=== PATIENT | female | born 1980 | race Caucasian/White ===

== ENCOUNTER → 2017-02-23 | Outpatient (CLI) | payer OTHER | LOC: FIMAGING 07:25 | PROVIDERS: ATTEND Advanced Practice Midwife | DX: O09.512 Supervision of elderly primigravida, second trimester (principal); Z3A.19 19 weeks gestation of pregnancy ==

== ENCOUNTER → 2017-07-26 | Outpatient (CLI) | payer OTHER | LOC: FIMAGING 14:13 | PROVIDERS: ATTEND Advanced Practice Midwife | DX: O09.513 Supervision of elderly primigravida, third trimester (principal); Z3A.41 41 weeks gestation of pregnancy ==

== ENCOUNTER 2017-07-27 20:02 | Inpatient (IN) | payer OTHER ==
[2017-07-27] MEDS ORDERED: OLIVE OIL 118 ML BTL MISC PRN (20:20)
[2017-07-27] MEDS ORDERED: EPSOM SALT 454 GM TP PRN (20:20)
[2017-07-27] MEDS ORDERED: LR 1,000 ML IV PRN (20:20)
[2017-07-27] MEDS ORDERED: TERBUTALINE SULFATE 1 MG/ML VIAL IV PRN (20:20)
[2017-07-27] MEDS ORDERED: fentaNYL 2MCG/ML/BUP 0.1% RTU 100 ML BAG EP ONE (20:20)
[2017-07-27] MEDS ORDERED: PHENYLEPHRINE HCL 100 MCG/ML SYR ONE (20:21)
[2017-07-27] MEDS ORDERED: BUPIVACAINE 0.25% 30 ML SDV ONE (20:21)
[2017-07-27] MEDS ORDERED: fentaNYL 100 MCG/2 ML INJ ONE (20:21)
[2017-07-27 20:32] LABS: % IMMATURE GRANULYOCYTES 0.7 % (0.0-1.1); ABSOLUTE IMMATURE GRANULOCYTES 0.15 10^3/uL (0.00-0.10); ADD DIFF? NO; ADD MORPH? NO; ADD SCAN? NO; ATYPICAL LYMPHOCYTE FLAG 0 (0-99); FRAGMENT RBC FLAG 0 (0-99); HEMATOCRIT 39.8 % (38.0-47.0); HEMOGLOBIN 14.7 g/dL (12.6-16.3); LEFT SHIFT FLG 10 (0-99); LIPEMIA HEMOLYSIS FLAG 90 (0-99); MEAN CELL HEMOGLOBIN 32.5 pg (27.9-34.1); MEAN CELL HEMOGLOBIN CONCENTR. 36.9 g/dL (32.4-36.7); MEAN CELL VOLUME 87.9 fL (81.5-99.8); PLATELET CLUMPS FLAG 10 (0-99); PLATELET COUNT 116 10^3/uL (150-400); RED BLOOD CELL COUNT 4.53 10^6/uL (4.18-5.33); RED CELL DISTRIBUTION WIDTH 13.7 % (11.5-15.2)
[2017-07-27] MEDS ORDERED: LIDO/EPI 2% **for epidural** 20 ML SDV ONE (21:14)
--- NOTE | 2017-07-27 21:24 | PREANESOB ---
Obstetric Pre-Anesthesia Info - General Info Proposed Procedure: Labor and delivery. : 1 Para: 0 - Info Status: Postmature Monitors: External FHR Baseline (bpm): 130 FHR Pattern: Reassuring - Labor Status Cervical Dilation per last OB SVE: 6 PIH: No Indications for Labor Analgesia: Pain Control Labor Epidural: Proposed Anesthesia ROS: Negative. Allergies/Adverse Reactions: Allergy/AdvReac Type Severity Reaction Status Date / Time No Known Allergies Allergy Unverified 07/27/17 20:20 Visit Medications: Generic Name Dose Route Start Last Admin Trade Name Keshia PRN Reason Stop Dose Admin Lactated Ringer's 1,000 mls @ 0 mls/hr 07/27/17 20:20 Lr IV 01/23/18 20:19 PRN PRN SEE PROTOCOL CONDITIONS Protocol Per Protocol Oxytocin 20 unit/ Lactated 1,002 mls @ 150 mls/hr 07/27/17 20:20 Ringer's IV PRN PRN Post- bleeding Ibuprofen 600 mg 07/27/17 20:20 Motrin PO 01/23/18 20:19 Q6HRS PRN post , inflammation Magnesium Sulfate 454 gm 07/27/17 20:20 Epsom Salt TP 01/23/18 20:19 Q1H PRN perineal discomfort [place] Oil 118 ml 07/27/17 20:20 Sweet Oil MISC 01/23/18 20:19 ONCE PRN perineal massage Terbutaline Sulfate 0.25 mg 07/27/17 20:20 Brethine IV 01/23/18 20:19 ONCE PRN Tachysystole Discontinued Medications Generic Name Dose Route Start Last Admin Trade Name Keshia PRN Reason Stop Dose Admin Bupivacaine HCl Confirm 07/27/17 20:21 Sensorcaine 0.25% Sdv Administered 07/27/17 20:22 Dose 30 ml .ROUTE .STK-MED ONE Fentanyl Confirm 07/27/17 20:21 Sublimaze Administered 07/27/17 20:22 Dose 100 mcg .ROUTE .STK-MED ONE Fentanyl/Bupivacaine HCl Confirm 07/27/17 20:20 Fentanyl/Bupivacaine/Ns 2 Mcg/Ml 0.1% (Premix Administered 07/27/17 20:21 Dose 100 ml EP .STK-MED ONE Lidocaine/Epinephrine Confirm 07/27/17 21:14 Xylocaine 2%-Epi 1:200,000 Administered 07/27/17 21:15 Dose 20 ml .ROUTE .STK-MED ONE Phenylephrine HCl Confirm 07/27/17 20:21 Neosynephrine Administered 07/27/17 20:22 Dose 1,000 mcg .ROUTE .STK-MED ONE - Anesthesia History Response to Local Anesthetics: Normal Anesthesia & Operative History: No Prior Problems Family Anesthesia History: Negative - Social History Substance Use/Abuse: Denies - Vital Signs Blood Pressure: 133/63 Heart Rate: 67 - Focused Exam Neck exam: FROM Mallampati Score: Class 1 Mouth exam: normal dental/mouth exam Pulmonary: no respiratory distress Cardiovascular: regular rate and rhythym Labs: 07/27/17 20:25 Patient ABO/Rh A POSITIVE 07/27/17 20:25 - Plan Anesthetic Plan: CSE Consent Signed and on Chart: Yes Patient/Guardian Understands and Agrees to Plan: Yes Urgent/Emergent Case: Berta hernandez completed preop but documented later for safe timely pt care
--- NOTE | 2017-07-27 21:37 | OBPROG ---
Labor Progress Note Assessment/Plan: Assessment: 36 year-old white female G1 @ 41.1 in labor who has transferred care (during labor) from Center. Now s/p epidural. Prolonged heart rate deceleration following epidural administration. heart rate is now category I following resuscitative measures. Plan: Passive (laboring down) 1st stage of labor. Rest with epidural and recheck cervix in 1 hour or sooner if pain/pressure worsens. 07/27/17 21:32 Subjective/Intrapartum Course: 07/27/17 21:31 I was called to assess patient following administration of epidural for heart rate decelerations. She had already received phenylephrine by the time I arrived in room. Objective: 07/27/17 20:25 Patient ABO/Rh A POSITIVE 07/27/17 20:25 Temp Pulse Resp BP Pulse Ox 67 133/63 H 07/27/17 21:24 07/27/17 21:24 - Physical Exam General Appearance: alert, mild distress, anxiety Neck: supple Respiratory: lungs clear, normal breath sounds Cardiac/Chest: regular rate, rhythm Abdomen: other (gravid, S=D, palpable contractions) Extremities: normal range of motion, non-tender Skin: normal color, warm/dry Neuro/Psych: no motor/sensory deficits, alert, normal mood/affect, oriented x 3 , other (s/p epidural, bilateral leg numbness and weakness) ICD10 Worksheet Patient Problems: Problems Problem Status Onset Active labor at term Acute - ICD10 Problem Qualifiers (1) Active labor at term
[2017-07-27] MEDS ORDERED: PHENYLEPHRINE HCL 100 MCG/ML SYR IVP PRN (21:45)
[2017-07-27] MEDS ORDERED: ONDANSETRON 4 MG/2 ML VIAL IVP PRN (21:45)
--- NOTE | 2017-07-27 21:45 | POSTANESTH ---
Post Anesthetic Evaluation Cardiovascular Status: Normal, Stable, Other, See Comment Respiratory Status: Normal, Stable Level of Consciousness/Mental Status: Can Participate in Eval Pain Control: Adequate, Prn Tx Ordered Nausea/Vomiting Control: Adequate, Prn Tx Ordered Complications Possibly Related to Anesthesia: None Noted (Brief decrease in BP and decreased FHTs x about 5 minutes - resolved with phenylephrine x 2 and position changes also cervix changed from 6 to 9cm after CSE.)
--- NOTE | 2017-07-27 21:55 | PDGENHP ---
History and Physical - Chief Complaint labor, center transfer - History of Present Illness 36-year-old G1 @ 40.1 weeks gestation (EDC 07/19/17 by LMP c/w scan) presents after trial of labor at [facility]. She was reportedly 6 cm dilated when she decided to present to [facility]. Care has been with [facility] midwives. Past medical history is significant for anxiety, not currently on meds. No complications in current . A+ / Antibody screen negative / RPR NR / HIV NR / Rubella Immune / HBsAg Neg / Hep C Neg / Chlamydia/ Gonorrhea Neg/Neg / cfDNA WNL / 1hr GTT 81 / GBS Negative. History Information - Allergies/Home Medication List Allergies/Adverse Reactions: No Known Allergies Allergy (Unverified 07/27/17 20:20) I have personally reviewed and updated: family history, medical history, social history, surgical history - Past Medical History no pertinent PMH - Surgical History Reports: no pertinent surgical hx - Family History Positive for: non-pertinent - Social History Smoking Status: Never smoked Alcohol Use: None Drug Use: None Review of Systems Review of Systems: ROS: 10pt was reviewed & negative except for what was stated in HPI & below Physical Exam Physical Exam: Temp Pulse Resp BP Pulse Ox 67 133/63 H 07/27/17 21:40 07/27/17 21:40 Constitutional: not in pain Eyes: PERRL Ears, Nose, Mouth, Throat: moist mucous membranes Cardiovascular: regular rate and rhythym, no murmur, rub, or gallop Respiratory: no respiratory distress, clear to auscultation Gastrointestinal: soft, non-tender abdomen Genitourinary: other (CE: 9.5/100/-3) Skin: warm, normal color Musculoskeletal: other (legs relatively immoble s/p epidural) Neurologic: AAOx3 Psychiatric: interacting appropriately, anxious Lab Data & Imaging Review 07/27/17 20:25 WBC 21.15 10^3/uL (3.80-9.50) H 07/27/17 20:25 RBC 4.53 10^6/uL (4.18-5.33) 07/27/17 20:25 Hgb 14.7 g/dL (12.6-16.3) 07/27/17 20:25 Hct 39.8 % (38.0-47.0) 07/27/17 20:25 MCV 87.9 fL (81.5-99.8) 07/27/17 20:25 MCH 32.5 pg (27.9-34.1) 07/27/17 20:25 MCHC 36.9 g/dL (32.4-36.7) H 07/27/17 20:25 RDW 13.7 % (11.5-15.2) 07/27/17 20:25 Plt Count 116 10^3/uL (150-400) L 07/27/17 20:25 MPV 14.0 fL (8.7-11.7) H 07/27/17 20:25 Neut % (Auto) 89.6 % (39.3-74.2) H 07/27/17 20:25 Lymph % (Auto) 4.3 % (15.0-45.0) L 07/27/17 20:25 [place] % (Auto) 5.2 % (4.5-13.0) 07/27/17 20:25 Eos % (Auto) 0.0 % (0.6-7.6) L 07/27/17 20:25 Baso % (Auto) 0.2 % (0.3-1.7) L 07/27/17 20:25 Nucleat RBC Rel Count 0.0 % (0.0-0.2) 07/27/17 20:25 Absolute Neuts (auto) 18.96 10^3/uL (1.70-6.50) H 07/27/17 20:25 Absolute Lymphs (auto) 0.91 10^3/uL (1.00-3.00) L 07/27/17 20:25 Absolute Monos (auto) 1.09 10^3/uL (0.30-0.80) H 07/27/17 20:25 Absolute Eos (auto) 0.00 10^3/uL (0.03-0.40) L 07/27/17 20:25 Absolute Basos (auto) 0.04 10^3/uL (0.02-0.10) 07/27/17 20: Absolute Nucleated RBC 0.00 10^3/uL (0-0.01) 07/27/17 20: Immature Gran % 0.7 % (0.0-1.1) 07/27/17 20:25 Immature Gran # 0.15 10^3/uL (0.00-0.10) H 07/27/17 20:25 Patient ABO/Rh A POSITIVE 07/27/17 20:25 Antibody Screen NEGATIVE 07/27/17 20:25 Assessment & Plan Assessment: 36 yo G1 @ 40.1 weeks in labor Plan: s/p epidural await second stage monitor FHRT closely
[2017-07-27] MEDS ORDERED: LR 500 ML IV SCH (22:00)
[2017-07-27] MEDS ORDERED: fentaNYL 2MCG/ML/BUP 0.1% RTU 100 ML EP SCH (22:00)
[2017-07-27] MEDS ORDERED: OLIVE OIL 118 ML BTL ONE (22:46)
[2017-07-27] MEDS ORDERED: LIDOCAINE 1% 300 MG/30 ML SDV ONE (22:46)
[2017-07-27] MEDS ORDERED: TERBUTALINE SULFATE 1 MG/ML VIAL ONE (22:46)
[2017-07-27] MEDS ORDERED: OXYTOCIN 10 UNIT/ML VIAL ONE (22:46)
[2017-07-27] MEDS ORDERED: AMMONIA AROMATIC 1 EACH AMP IH ONE (22:46)
[2017-07-27] MEDS ORDERED: MISOPROSTOL 200 MCG TAB ONE (22:46)
[2017-07-27] MEDS ORDERED: CEPACOL LOZENGE PO PRN (22:52)
--- NOTE | 2017-07-28 05:47 | OBPROG ---
Labor Progress Note Assessment/Plan: Assessment: 36 year-old white female G1 @ 41.1 in labor who has transferred care (during labor) from [facility]. Now s/p epidural. Prolonged heart rate deceleration following epidural administration. heart rate is now category I following resuscitative measures. Plan: Passive (laboring down) 1st stage of labor. Rest with epidural and recheck cervix in 1 hour or sooner if pain/pressure worsens. 07/27/17 21:32 07/28/17 05:47 2nd stage begun Subjective/Intrapartum Course: 07/27/17 21:31 I was called to assess patient following administration of epidural for heart rate decelerations. She had already received phenylephrine by the time I arrived in room. 07/28/17 05:47 Feeling more pain with contractions Objective: 07/27/17 20:25 Patient ABO/Rh A POSITIVE 07/27/17 20:25 Temp Pulse Resp BP Pulse Ox 67 133/63 H 07/27/17 21:40 07/27/17 21:40 - SVE Dilation (cm): 10 Effacement (%): 100 Station: -1 Membranes: AROM Amniotic Fluid Color: Clear - FHR Assessment [place] FHR (bpm): 120 Oxytocin Orders Assessment - Pre-Induction/Augmentation Assessment Gestational Age: 41 week(s) and 1 day(s) ICD10 Worksheet Patient Problems: Problems Problem Status Onset Active labor at term Acute - ICD10 Problem Qualifiers (1) Active labor at term
[2017-07-28] MEDS ORDERED: ACETAMINOPHEN 325 MG TAB PO PRN (06:49)
--- NOTE | 2017-07-28 07:05 | OBPROG ---
Labor Progress Note Assessment/Plan: Assessment: 36 year-old white female G1 @ 41.1 in labor who has transferred care (during labor) from Center. Now s/p epidural. Prolonged heart rate deceleration following epidural administration. heart rate is now category I following resuscitative measures. Plan: Passive (laboring down) 1st stage of labor. Rest with epidural and recheck cervix in 1 hour or sooner if pain/pressure worsens. 07/27/17 21:32 07/28/17 05:47 2nd stage begun 07/28/17 07:02 Continue pushing 38F temp: Tylenol ordered, monitor closely for mat/fet tachycardia; ruptured at 5PM Subjective/Intrapartum Course: 07/27/17 21:31 I was called to assess patient following administration of epidural for heart rate decelerations. She had already received phenylephrine by the time I arrived in room. 07/28/17 05:47 Feeling more pain with contractions 07/28/17 07:04 Denies fever. Pushing. Objective: 07/27/17 20:25 Patient ABO/Rh A POSITIVE 07/27/17 20:25 Temp Pulse Resp BP Pulse Ox 67 133/63 H 07/27/17 21:40 07/27/17 21:40 - SVE Dilation (cm): 10 Effacement (%): 100 Station: +1 Membranes: AROM Amniotic Fluid Color: Clear - FHR Assessment [place] FHR (bpm): 120 (early decels) FHR Pattern Variability: Moderate Oxytocin Orders Assessment - Pre-Induction/Augmentation Assessment Gestational Age: 41 week(s) and 1 day(s) ICD10 Worksheet Patient Problems: Problems Problem Status Onset Active labor at term Acute - ICD10 Problem Qualifiers (1) Active labor at term
[2017-07-28] MEDS: OXYTOCIN 20 UNIT in LR 1,000 ML IV PRN ×2 (08:21→12:44)
[2017-07-28] MEDS ORDERED: DOCUSATE SODIUM 100 MG CAP PO PRN (08:36)
[2017-07-28] MEDS ORDERED: HYDROCODONE/APAP 5/325 TAB PO PRN (08:36)
[2017-07-28] MEDS ORDERED: SIMETHICONE 80 MG TAB CHEW PO PRN (08:36)
[2017-07-28] MEDS ORDERED: HYDROCORTISONE 0.5% CREAM TP PRN (08:36)
[2017-07-28] MEDS ORDERED: IBUPROFEN 600 MG TAB PO PRN (08:36)
--- NOTE | 2017-07-28 08:43 | OBDEL ---
Info Type: Vaginal Presentation at Delivery: [facility] L&D Analgesia/Anesthesia Type: Epidural GBS+: No Intrapartum Medications: Generic Name Dose Route Start Last Admin Trade Name Freq PRN Reason Stop Dose Admin Acetaminophen 325 - 650 mg 07/28/17 06:49 07/28/17 07:11 Tylenol PO 01/24/18 06:48 650 mg Q3HRS PRN Administration Pain, Mild Ondansetron HCl 4 mg 07/27/17 21:45 07/28/17 03:11 Zofran IVP 07/28/17 21:44 4 mg Q4HRS PRN Administration Nausea/Vomiting, Can't Take PO Discontinued Medications Generic Name Dose Route Start Last Admin Trade Name Freq PRN Reason Stop Dose Admin Oxytocin 20 unit/ Lactated 1,002 mls @ 150 mls/hr 07/27/17 20:20 07/28/17 08: 21 Ringer's IV 10 mls PRN PRN Administration Post- bleeding - Care Provider Scroll Shear Operator/SEAM PRESS OPERATOR: Kaitlin Barbour - Hospital Course Intrapartum: 07/27/17 21:31 I was called to assess patient following administration of epidural for heart rate decelerations. She had already received phenylephrine by the time I arrived in room. 07/28/17 05:47 Feeling more pain with contractions 07/28/17 07:04 Denies fever. Pushing. Indications for Delivery: Spontaneous Labor (transfer from center) Vaginal Delivery - Delivery Provider Delivery Physician/CNM: Michelle Lynn - Labor and Delivery Onset of Contractions Date: 07/27/17 Onset of Contractions Time: 14:00 Onset of Contractions Type: Spontaneous Rupture of Membranes Date: 07/27/17 Rupture of Membranes Time: 17:00 Rupture of Membranes Type: Artificial Amniotic Fluid Color: Clear Dilation Complete Date: 07/28/17 Dilation Complete Time: 03:00 Placenta Delivery Date: 07/28/17 Placenta Delivery Time: 08:20 Total Hours of Labor: 18 Non-surgical Procedures: Amniotomy Laceration: Other (Specify) (Left vaginal sidewall) Repair: 3-0, Vicryl Vaginal Sponge Count Correct: Yes Vaginal Needle Count Correct: Yes Vaginal Sweep Performed: Yes EBL: 300 cc Delivery Events: Nuchal Cord (loose x 1 - slipped on perineum), Shoulder Dystocia (Mild, <1 min; shoulder delivered after McRobert's maneuver and suprapubic pressure; terminal meconium-thick noted after delivery of anterior shoulder) [place] Data [place] Delivery Date: 07/28/17 Delivery Time: 08:13 ELVER: 07/19/17 Gestational Age: 41 week(s) and 2 day(s) Sex of : Male Weight (gm): 3572.04 g Score (1 Min): 7 Score (5 Min): 9 Shoulder Dystocia Time Head Delivered: 08:12 Time Body Delivered: 08:13 1st Maneuver Attempted Maneuvers: Norma 2nd Maneuver Attempted Maneuvers: Suprapubic Pressure ICD10 Worksheet Patient Problems: Problems Problem Status Onset Active labor at term Acute (spontaneous vaginal delivery) Acute - ICD10 Problem Qualifiers (1) (spontaneous vaginal delivery)
[2017-07-28 09:08] LABS: PH VENOUS CORD BLOOD 7.27 (7.20-7.42)
[2017-07-28] MEDS: IBUPROFEN 600 MG TAB PO PRN ×3 (09:29→22:07)
[2017-07-28 13:11] VITALS: RESP 16; O2SAT 97
[2017-07-29] MEDS: IBUPROFEN 600 MG TAB PO PRN ×3 (07:31→20:07)
--- NOTE | 2017-07-29 11:32 | OBPP ---
Progress Note Assessment/Plan: Assessment: [id number] S/p PPD#1 Plan: routine pp care ambulate support PRN plan d/c home tomorrow 07/29/17 10:34 07/29/17 14:43 Subjective/ Course: 07/29/17 14:44 Pt is doing well, she denies any pain or heavy bleeding. She reports mild cramping. She is . She is voiding without difficulty. Objective: 07/27/17 20:25 Patient ABO/Rh A POSITIVE 07/27/17 20:25 Temp Pulse Resp BP Pulse Ox 36.5 C 63 16 106/64 97 07/28/17 20:00 07/28/17 20:00 07/28/17 20:00 07/28/17 20:00 07/28/17 11:45 Uterine Position/Fundal Height: Umbilicus -1, Midline Uterine Tone: Firm Physical Exam - Physical Exam EENT: PERRL/EOMI, normal ENT inspection Neck: supple Respiratory: lungs clear, normal breath sounds Cardiac/Chest: regular rate, rhythm Abdomen: non-tender, soft, other (uterus firm @ U-1) Extremities: non-tender Back: Normal inspection Skin: normal color, warm/dry Neuro/Psych: no motor/sensory deficits, alert, normal mood/affect, oriented x 3
[2017-07-30] MEDS: IBUPROFEN 600 MG TAB PO PRN ×2 (02:20→08:31)
--- NOTE | 2017-07-30 09:55 | OBPP ---
Progress Note Assessment/Plan: Assessment: PPD 2 s/p transfer from center Plan: routine care, d/c home 07/30/17 09:52 Subjective/ Course: 07/29/17 14:44 Pt is doing well, she denies any pain or heavy bleeding. She reports mild cramping. She is . She is voiding without difficulty. 07/30/17 09:53 Pt doing well. Baby is latching well. bld is light. urinating fine - feeling sensation of voiding better. perineum not too sore - used ice. using ibu. Objective: 07/27/17 20:25 Patient ABO/Rh A POSITIVE 07/27/17 20:25 Temp Pulse Resp BP Pulse Ox 36.2 C 59 L 16 102/65 97 07/29/17 20:00 07/29/17 20:00 07/29/17 20:00 07/29/17 20:00 07/28/17 11:45 Uterine Position/Fundal Height: Umbilicus -1 Uterine Tone: Firm Physical Exam - Physical Exam Abdomen: non-tender, soft Extremities: non-tender, pedal edema (none) Skin: normal color, warm/dry Neuro/Psych: alert, normal mood/affect
--- NOTE | 2017-07-30 10:01 | OBGCSDC ---
General Delivery Information - General Info : 1 Para: 1 Abortions: 0 Type: Vaginal L&D Analgesia/Anesthesia Type: Epidural Admission Date: 07/27/17 Labs: Patient ABO/Rh A POSITIVE 07/27/17 20:25 Hct 39.8 % (38.0-47.0) 07/27/17 20:25 - Hospital Course Intrapartum: 07/27/17 21:31 I was called to assess patient following administration of epidural for heart rate decelerations. She had already received phenylephrine by the time I arrived in room. 07/28/17 05:47 Feeling more pain with contractions 07/28/17 07:04 Denies fever. Pushing. : 07/29/17 14:44 Pt is doing well, she denies any pain or heavy bleeding. She reports mild cramping. She is . She is voiding without difficulty. 07/30/17 09:53 Pt doing well. Baby is latching well. bld is light. urinating fine - feeling sensation of voiding better. perineum not too sore - used ice. using ibu. Vaginal - Delivery Provider Delivery Physician/CNM: Michelle Lynn - Diagnosis Labor: Spontaneous Rupture of Membranes Type: Artificial Amniotic Fluid Color: Clear Laceration: Other (Specify) (Left vaginal sidewall) Repair: 3-0, Vicryl Delivery Events: Nuchal Cord (loose x 1 - slipped on perineum), Shoulder Dystocia (Mild, <1 min; shoulder delivered after McRobert's maneuver and suprapubic pressure; terminal meconium-thick noted after delivery of anterior shoulder) - Procedures Non-surgical Procedures: Amniotomy - Delivery Non-surgical Procedures: Amniotomy EBL: 300 cc [place] Data [place] Delivery Date: 07/28/17 Delivery Time: 08:13 ELVER: 07/19/17 Gestational Age: 41 week(s) and 4 day(s) Sex of Infant: Male [place] Weight (gm): 3570 kg Score (1 Min): 5 Score (5 Min): 8 Discharge Information - Discharge Information Condition: Good Instruction/Follow Up: See Instruction Sheet, Four Weeks, Six Weeks (option for f/u with [facility] or center)
[2017-07-30 10:29] VITALS: BP 104/64; PULSE 66; TEMP 97.4
== END 2017-07-30 11:00 | disposition home or self-care (01) | DRG 775 ==
LOC: FLD 20:02 → FOB 07-28 11:01
PROVIDERS: ADMIT Obstetrics & Gynecology Gynecology; ATTEND Obstetrics & Gynecology
PROC: 10907ZC Drainage of Amniotic Fluid, Therapeutic from Products of Conception, Via Natural or Artificial Opening (ICD-10-PCS; 2017-07-27)
PROC: 0UQG7ZZ Repair Vagina, Via Natural or Artificial Opening (ICD-10-PCS; principal; 2017-07-28)
PROC: 10E0XZZ Delivery of Products of Conception, External Approach (ICD-10-PCS; principal; 2017-07-28)
DX: O66.0 Obstructed labor due to shoulder dystocia (principal); O69.81X0 Labor and delivery complicated by cord around neck, without compression, not applicable or unspecified; O48.0 Post-term pregnancy; O76 Abnormality in fetal heart rate and rhythm complicating labor and delivery; O71.4 Obstetric high vaginal laceration alone; O77.0 Labor and delivery complicated by meconium in amniotic fluid; Z3A.41 41 weeks gestation of pregnancy; Z37.0 Single live birth
CPT/HCPCS: J2370; J2405; J3010; J3105

== ENCOUNTER → 2017-08-07 | Outpatient (CLI) | payer OTHER | LOC: FLACT 11:54 | PROVIDERS: ATTEND Advanced Practice Midwife | DX: O92.79 Other disorders of lactation (principal) | CPT/HCPCS: G0463 ==